=== PATIENT | female | born 1940 | race Caucasian/White ===

== ENCOUNTER 2022-10-20 18:35 | Emergency (ER) | payer MEDICARE, BC ==
[2022-10-20] MEDS ORDERED: HYDROmorphone 1 MG/ML Syringe IVPUSH ONE (19:58)
[2022-10-20] MEDS ORDERED: Midazolam 1 MG/ML 2 ML SDV IVPUSH ONE (19:58)
== END 2022-10-20 21:52 | disposition home or self-care (01) ==
LOC: JD.ED 18:35
DX: S43.014A Anterior dislocation of right humerus, initial encounter (principal); I10 Essential (primary) hypertension; W01.0XXA Fall on same level from slipping, tripping and stumbling without subsequent striking against object, initial encounter
CPT/HCPCS: 23650; 73020; 73030; 96374; 99283; J1170; J2250

== ENCOUNTER 2024-06-13 10:55 | Day surgery (SDC) | payer MEDICARE, BC ==
[~2024-06-13 10:55] MED LIST: HYDROmorphone 0.5 MG/0.5 ML Syringe IVPUSH PRN; Sodium Chloride 0.9% 10 ML Syringe FLUSH PRN; Sodium Chloride 0.9% 10 ML Syringe FLUSH SCH
[2024-06-13] MEDS: Lactated Ringers 1,000 ML IV SCH (11:35)
[2024-06-13] MEDS ORDERED: Propofol 200 MG/20 ML SDV ONE ×3 (13:23→14:55)
[2024-06-13] MEDS ORDERED: fentaNYL 100 MCG/2 ML SDV ONE (13:23)
[2024-06-13] MEDS ORDERED: Lidocaine 1% 4 ML ONE (13:23)
[2024-06-13] MEDS ORDERED: Midazolam 1 MG/ML 2 ML SDV ONE (13:23)
[2024-06-13] MEDS: Sodium Chloride 0.9% 50 ML SDV ONE (14:00)
[2024-06-13] MEDS: Methylene Blue 100 MG/10 ML SDV ONE (14:00)
[2024-06-13] MEDS ORDERED: Ketamine 200 MG/20 ML MDV ONE (14:12)
[2024-06-13] MEDS: Bupivacaine 0.5% 30 ML SDV ONE (14:22)
[2024-06-13] MEDS: EPINEPHrine 1 MG/ML SDV ONE (14:22)
[2024-06-13] MEDS: fentaNYL 100 MCG/2 ML SDV IVPUSH PRN (16:11)
[2024-06-13] MEDS: Ondansetron 4 MG/2 ML SDV IVPUSH PRN (16:38)
[2024-06-13] MEDS: oxyCODONE 5 MG Tab PO PRN (16:39)
== END 2024-06-13 17:38 | disposition home or self-care (01) ==
LOC: JD.SDS 10:55
PROVIDERS: ATTEND Surgery
DX: C43.72 Malignant melanoma of left lower limb, including hip (principal); I10 Essential (primary) hypertension; Z79.84 Long term (current) use of oral hypoglycemic drugs; Z79.899 Other long term (current) drug therapy
CPT/HCPCS: 15275; 28041; 38500; 38792; 82947; A9270; A9541; J0171; J0665; J2250; J2405; J2704; J3010; J3490; J7120; Q4133; Q9968; 00400; 99100

== ENCOUNTER 2025-06-19 13:55 | Emergency (ER) | payer MEDICARE, BC | END 2025-06-19 18:37 | disposition home or self-care (01) | LOC: JD.ED 13:55 | DX: K75.9 Inflammatory liver disease, unspecified (principal); E87.1 Hypo-osmolality and hyponatremia; E78.00 Pure hypercholesterolemia, unspecified; I10 Essential (primary) hypertension; Z79.899 Other long term (current) drug therapy; Z79.84 Long term (current) use of oral hypoglycemic drugs; Z90.89 Acquired absence of other organs | CPT/HCPCS: 76705; 76705-26; 99284; 99285 ==